=== PATIENT | male | born 1985 | race African-American/Black ===

== ENCOUNTER 2022-05-10 23:55 | Emergency (ER) | payer OTHER ==
[~2022-05-10] VITALS: Ht 193 cm; Wt 136.1 kg
--- NOTE | 2022-05-11 00:05 | NUR ---
BIBS FOR C/O MID STERNAL SHARP NON- RADIATING CP SINCE AM. PATIENT IS AAOX4. AMBULATORY. ABLE TO MAKE NEEDS KNOWN. PLACED COMFORTABLY IN BED. VITALS CHECKED.
--- NOTE | 2022-05-11 00:50 | NUR ---
DIGITAL COMMENTATOR AT BEDSIDE. ABLE TO INSERT IV TARIK ON LEFT AC G20.
[2022-05-11] MEDS ORDERED: MORPHINE SULFATE INJ 4 MG/ML DISP.SYRIN ONE (01:00)
[2022-05-11] MEDS ORDERED: MORPHINE SULFATE INJ 2 MG/ML DISP.SYRIN IV ONE (01:00)
[2022-05-11 01:05] LABS: BASOPHILS % (AUTO) 0.4 % (0.0-2.0); EOSINOPHILS % (AUTO) 1.6 % (0.0-6.0); HEMATOCRIT 45 % (39-51); HEMOGLOBIN 14.7 g/dL (13.5-17.5); LYMPHOCYTES # (AUTO) 1.9 K/uL (0.8-4.8); LYMPHOCYTES % (AUTO) 27.1 % (20.0-44.0); MEAN CORPUSCULAR HGB CONC 33 g/dl (31.0-36.0); MEAN CORPUSCULAR VOLUME 84 fL (80-96); MONOCYTES # (AUTO) 0.6 K/uL (0.1-1.30); MONOCYTES % (AUTO) 8.3 % (2.0-12.0); NEUTROPHILS # (AUTO) 4.5 K/uL (1.8-8.9); NEUTROPHILS % (AUTO) 62.6 % (43.0-81.0); PLATELET COUNT (AUTO) 187 K/uL (150-450); RED BLOOD CELL COUNT(AUTO) 5.37 MIL/uL (4.5-6.0); WHITE BLOOD COUNT (AUTO) 7.1 K/uL (4.3-11.0)
[2022-05-11 01:17] LABS: ALANINE AMINOTRANSFERASE 30 U/L (12-78); ALBUMIN 3.8 g/dL (3.4-5.0); ALKALINE PHOSPHATASE 66 U/L (46-116); ASPARTATE AMINOTRANSFERASE 20 U/L (15-37); BILIRUBIN,DIRECT 0.1 mg/dL (0.0-0.2); BILIRUBIN,TOTAL 0.3 mg/dL (0.2-1.0); CARBON DIOXIDE 27 mmol/L (21-32); CHLORIDE 102 mmol/L (98-107); CREATININE 1.2 mg/dL (0.6-1.3); GLUCOSE 101 mg/dL (74-106); LIPASE 111 U/L (73-393); POTASSIUM 4.1 mmol/L (3.5-5.1); SODIUM SERUM 137 mmol/L (136-145); TOTAL PROTEIN, SERUM 8.3 g/dL (6.4-8.2); UREA NITROGEN, BLOOD 15 mg/dL (7-18)
--- NOTE | 2022-05-11 01:18 | NUR ---
UNABLE TO GIVE URINE SAMPLE AT THE MOMENT
--- NOTE | 2022-05-11 01:26 | NUR ---
BROUGHT TO CT DEPT
--- NOTE | 2022-05-11 01:26 | NUR ---
UPDATES GIVEN TO LARA BARLOW
[2022-05-11] MEDS ORDERED: CT SWABBABLE VALVE TRANS SET 1 EA INFUS.SET MC ONE (01:29)
[2022-05-11] MEDS ORDERED: IV NS 0.9% 250 ML IV ONE (01:29)
[2022-05-11] MEDS ORDERED: IOHEXOL-300 100 ML VIAL IV ONE (01:29)
--- NOTE | 2022-05-11 01:52 | NUR ---
URINE SPECIMEN SENT TO LAB
--- NOTE | 2022-05-11 02:33 | NUR ---
HSV 1/2 PCR SWAB DONE AND SENT TO LAB
[2022-05-11 02:47] LABS: BILIRUBIN,URINE NEGATIVE (NEGATIVE); COLOR,URINE YELLOW (YELLOW); LEUKOCYTE ESTERASE ,URINE 1+ (NEGATIVE); NITRITE, URINE NEGATIVE (NEGATIVE); PROTEIN,URINE NEGATIVE (NEGATIVE); UGLUCOSE NEGATIVE (NEGATIVE); UROBILINOGEN,URINE 0.2 EU/dL (0.2)
--- NOTE | 2022-05-11 02:50 | NUR ---
CHLAMYDIA SWAB DONE AND SENT TO LAB
[2022-05-11 02:53] LABS: BACTERIA,URINE Rare /HPF (None Seen); RBC,URINE 0-2 /HPF (0-2)
[2022-05-11 02:54] LABS: SQUAMOUS EPITHELIAL CELL,UR Few /HPF (None Seen)
[2022-05-11] MEDS ORDERED: FAMO40TA7 PO (05:02)
[2022-05-11] MEDS ORDERED: ONDA4TAB5 PO (05:02)
[2022-05-11] MEDS ORDERED: TYL2T PO (05:02)
--- NOTE | 2022-05-11 05:12 | NUR ---
Patient discharged to home in stable condition. Written and verbal after care instructions given. Patient verbalizes understanding of instruction.
[2022-05-11 05:14] VITALS: BP 124/96
== END 2022-05-11 06:14 | disposition home or self-care (01) ==
LOC: ER 23:57
DX: R07.89 Other chest pain (principal); K29.70 Gastritis, unspecified, without bleeding; A64 Unspecified sexually transmitted disease; J45.909 Unspecified asthma, uncomplicated
CPT/HCPCS: 99285; 71260; 96374; 93005; 74177; 85025; 80048; 87086; 83690; 80076; 81001; 36415; 84484; 87529; 87491; 87591; J2270; J7050; Q9967